=== PATIENT | male | born 2000 | race Caucasian/White ===

== ENCOUNTER 2024-11-20 21:25 | Emergency (ER) | payer BC ==
[2024-11-20 22:14] VITALS: RESP 18; TEMP 98.6
--- NOTE | 2024-11-20 22:32 | ED ---
General Adult HPI - General Chief complaint: Dizziness Stated complaint: Weakness Time Seen by Provider: 11/20/24 21:35 Source: patient, EMS, RN notes reviewed Mode of arrival: EMS Limitations: no limitations - History of Present Illness Initial comments: 23-year-old male presents to the emergency department for evaluation of lightheadedness and near syncope. Patient states that this evening just after eating lunch at work he started to feel lightheaded and had palpitations. He states that he felt that he was going to pass out. He got hot and clammy, nauseated prior to this. He does report having 1 episode of this prior about 2 days ago. He states that that was due to an injury though. He denies any recent illness. Denies any fever, chills. Denies chest pain, shortness of breath. Review of Systems ROS Statement: Those systems with pertinent positive or pertinent negative responses have been documented in the HPI. ROS Other: All systems not noted in ROS Statement are negative. Past Medical History Past Medical History: No Reported History History of Any Multi-Drug Resistant Organisms: None Reported Past Surgical History: No Surgical Hx Reported Past Psychological History: Unable to Obtain Smoking Status: Never smoker Past Alcohol Use History: None Reported Past Drug Use History: None Reported General Exam Limitations: no limitations General appearance: alert, in no apparent distress Head exam: Present: atraumatic, normocephalic, normal inspection Eye exam: Present: normal appearance, PERRL, EOMI. Absent: scleral icterus, conjunctival injection, periorbital swelling ENT exam: Present: normal exam, mucous membranes moist Neck exam: Present: normal inspection. Absent: tenderness, meningismus, lymph adenopathy Respiratory exam: Present: normal lung sounds bilaterally. Absent: respiratory distress, wheezes, rales, rhonchi, stridor Cardiovascular Exam: Present: regular rate, normal rhythm, normal heart sounds. Absent: systolic murmur, diastolic murmur, rubs, gallop, clicks Extremities exam: Present: normal inspection, full ROM, normal capillary refill. Absent: tenderness, pedal edema, joint swelling, calf tenderness Back exam: Present: normal inspection Neurological exam: Present: alert, oriented X3 Psychiatric exam: Present: normal affect, normal mood Skin exam: Present: warm, dry, intact, normal color. Absent: rash Course Vital Signs 11/20/24 11/20/24 11/21/24 21:55 23:15 00:10 Temperature 98.6 F Pulse Rate 110 H 103 H Pulse Rate [ 97 Insulation Foreman ] Respiratory 18 18 18 Rate Blood Pressure 144/68 140/70 Blood Pressure 113/64 [Right Arm] O2 Sat by Pulse 100 99 99 Oximetry 11/21/24 11/21/24 00:11 00:12 Temperature Pulse Rate Pulse Rate [ 100 100 Insulation Foreman ] Respiratory 18 18 Rate Blood Pressure Blood Pressure 135/77 144/62 [Right Arm] O2 Sat by Pulse 98 98 Oximetry Medical Decision Making - Medical Decision Making Was pt. sent in by a medical professional or institution (, PA, EDITORIAL WRITER, urgent care, hospital, or residential...) When possible be specific @ -No Did you speak to anyone other than the patient for history (EMS, parent, family, police, friend...)? What history was obtained from this source @ -No Did you review nursing and triage notes (agree or disagree)? Why? @ -I reviewed and agree with nursing and triage notes Were old charts reviewed (outside hosp., previous admission, EMS record, old EKG, old radiological studies, urgent care reports/EKG's, residential records)? Report findings @ -No old charts were reviewed Differential Diagnosis (chest pain, altered mental status, abdominal pain women, abdominal pain men, vaginal bleeding, weakness, fever, dyspnea, syncope, he adache, dizziness, GI bleed, back pain, seizure, CVA, palpatations, mental health, musculoskeletal)? @ -Differential Dizziness: Benign paroxysmal positional Vertigo, Meniere's disease, otitis media, acoustic neuroma, vertebrobasilar insufficiency, cerebellar stroke, encephalitis, hypovolemic, arrhythmia, coronary artery syndrome, anemia, this is not meant to be an all-inclusive list EKG interpreted by me (3pts min.). @ -EKG@2132 shows sinus rhythm rate 98, MI 147, QRS 105, QT/QTc [id number] X-rays interpreted by me (1pt min.). @ -None done CT interpreted by me (1pt min.). @ -None done U/S interpreted by me (1pt. min.). @ -None done What testing was considered but not performed or refused? (CT, X-rays, U/S, labs)? Why? @ -None What meds were considered but not given or refused? Why? @ -None Did you discuss the management of the patient with other professionals (jesse mercadofessionalnurys i.e. , PA, EDITORIAL WRITER, lab, RT, psych nurse, transition social worker, mortgage servicing specialist, teacher, biosecurity officer, counter caser)? Give summary @ -No Was smoking cessation discussed for >3mins.? @ -No Was critical care preformed (if so, how long)? @ -No Were there social determinants of health that impacted care today? How? (Homelessness, low income, unemployed, alcoholism, drug addiction, transportation, low edu. Level, literacy, decrease access to med. care, [facility], rehab)? @ -No Was there de-escalation of care discussed even if they declined (Discuss DNR or withdrawal of care, Hospice)? DNR status @ -No What co-morbidities impacted this encounter? (DM, HTN, Smoking, COPD, CAD, Cancer, CVA, ARF, Chemo, Hep., AIDS, mental health diagnosis, sleep apnea, morbid obesity)? @ -None Was patient admitted / discharged? Hospital course, mention meds given and route, prescriptions, significant lab abnormalities, going to OR and other pertinent info. @ -Discharge. Patient presented to the emergency department for evaluation of a presyncopal episode. Patient states that this occurred after eating dinner tonight. Laboratory studies were obtained revealing no significant leukocytosis, hemoglobin within normal limits. CMP is nonactionable. Patient was provided IV fluids in the emergency department. No significant changes in blood pressure or heart rate while monitoring orthostatic vital signs. He is feeling better. He will be discharged home. He is understanding agreeable plan. Patient stable at time of discharge. Case discussed with Dr. Johnson. Undiagnosed new problem with uncertain prognosis? @ -No Drug Therapy requiring intensive monitoring for toxicity (Heparin, Nitro, Insulin, Cardizem)? @ -No Were any procedures done? @ -No Diagnosis/symptom? @ -Presyncope Acute, or Chronic, or Acute on Chronic? @ -Acute Uncomplicated (without systemic symptoms) or Complicated (systemic symptoms)? @ -Uncomplicated Side effects of treatment? @ -No Exacerbation, Progression, or Severe Exacerbation? @ -No Poses a threat to life or bodily function? How? (Chest pain, [place], [place], pneumonia, PE, COPD, DKA, ARF, appy, cholecystitis, CVA, Diverticulitis, Homicidal, Suicidal, threat to staff... and all critical care pts) @ -No - Lab Data Result diagrams: 11/20/24 22:45 11/20/24 22:45 Lab Results 11/20/24 11/20/24 11/20/24 Range/Units 22:45 22:45 22:45 WBC 10.35 H (4.50-10.00) 10*3/uL RBC 4.48 (4.40-5.60) 10*6/uL Hgb 13.8 (13.0-17.0) g/dL Hct 39.0 L (39.6-50.0) % MCV 87.1 (80.0-97.0) fL MCH 30.8 (27.0-32.0) pg MCHC 35.4 (32.0-37.0) g/dL Plt Count 224 (140-440) 10*3/uL MPV 10.2 (9.5-12.2) fL Immature Gran % (Auto) 0.2 % Neutrophils % 78.8 % Lymphocytes % 11.9 % Monocytes % 8.5 % Eosinophils % 0.2 % Basophils % 0.4 % Immature Gran # 0.02 (0.00-0.04) 10*3/uL Neutrophils # 8.16 H (1.80-7.70) 10*3/uL Lymphocytes # 1.23 (0.90-5.00) 10*3/uL Monocytes # 0.88 (0.20-1.00) 10*3/uL Eosinophils # 0.02 L (0.04-0.35) 10*3/uL Basophils # 0.04 (0.00-0.10) 10*3/uL PT 11.0 (10.0-12.5) sec INR 1.0 (<1.2) APTT 24.1 (22.0-30.0) sec Sodium 137 (137-145) mmol/L Potassium 3.9 (3.5-5.1) mmol/L Chloride 105 (98-107) mmol/L Carbon Dioxide 25 (22-30) mmol/L Anion Gap 7 mmol/L BUN 17 (9-20) mg/dL Creatinine 1.01 (0.66-1.25) mg/dL Est GFR (CKD-EPI)AfAm >90 (>60 ml/min/1.73 sqM) Est GFR (CKD-EPI)NonAf >90 (>60 ml/min/1.73 sqM) Glucose 101 H (74-99) mg/dL Calcium 9.3 (8.4-10.2) mg/dL Total Bilirubin 0.8 (0.2-1.3) mg/dL AST 26 (17-59) U/L ALT 19 (4-49) U/L Alkaline Phosphatase 53 (38-126) U/L Total Protein 7.0 (6.3-8.2) g/dL Albumin 4.2 (3.5-5.0) g/dL Disposition Clinical Impression: Pre-syncope Disposition: HOME SELF-CARE Condition: Stable Instructions (If sedation given, give patient instructions): Dizziness (ED) Additional Instructions: Please follow up with your doctor. Return to the emergency department for new or worsening symptoms. Is patient prescribed a controlled substance at d/c from ED?: No Referrals: None,Stated [Primary Care Provider] - 1-2 days
[2024-11-20] MEDS: SODIUM CHLORIDE 0.9% 1,000 ML IV ONE (22:45)
[2024-11-20 22:55] LABS: Basophils # (A) 0.04 10*3/uL (0.00-0.10); Basophils % (A) 0.4 %; Eosinophils # (A) 0.02 10*3/uL (0.04-0.35); Eosinophils % (A) 0.2 %; HGB 13.8 g/dL (13.0-17.0); Lymphocytes # (A) 1.23 10*3/uL (0.90-5.00); Lymphocytes % (A) 11.9 %; MCH 30.8 pg (27.0-32.0); MCHC 35.4 g/dL (32.0-37.0); MCV 87.1 fL (80.0-97.0); Mean Platelet Volume 10.2 fL (9.5-12.2); Monocytes # (A) 0.88 10*3/uL (0.20-1.00); Monocytes % (A) 8.5 %; Neutrophils # (A) 8.16 10*3/uL (1.80-7.70); Neutrophils % (A) 78.8 %; Platelet Count 224 10*3/uL (140-440); RBC 4.48 10*6/uL (4.40-5.60); RDW 11.8 % (11.5-14.5); WBC 10.35 10*3/uL (4.50-10.00)
[2024-11-20 23:10] LABS: Partial Thromboplastin Time 24.1 sec (22.0-30.0)
[2024-11-20 23:25] LABS: ALT 19 U/L (4-49); African American GFR (CKD) >90 (>60 ml/min/1.73 sqM); Albumin 4.2 g/dL (3.5-5.0); Anion Gap 7 mmol/L; Blood Urea Nitrogen 17 mg/dL (9-20); Calcium 9.3 mg/dL (8.4-10.2); Carbon Dioxide 25 mmol/L (22-30); Chloride 105 mmol/L (98-107); Glucose 101 mg/dL (74-99); Non-African American GFR(CKD) >90 (>60 ml/min/1.73 sqM); Sodium 137 mmol/L (137-145); Total Bilirubin 0.8 mg/dL (0.2-1.3)
[2024-11-20 23:34] LABS: Potassium 3.9 mmol/L (3.5-5.1)
[2024-11-20 23:35] LABS: AST 26 U/L (17-59); Alkaline Phosphatase 53 U/L (38-126)
[2024-11-21 00:12] VITALS: BP 144/62; PULSE 100
== END 2024-11-21 00:24 | disposition home or self-care (01) ==
LOC: EC 21:25
DX: R55 Syncope and collapse (principal)
CPT/HCPCS: 36415; 80053; 85025; 85610; 85730; 93005; 96360; 96361; 99285

== ENCOUNTER → 2024-11-26 | Outpatient (CLI) | payer BC ==
--- NOTE | 2024-11-26 09:50 | CT ---
EXAMINATION TYPE: CT brain wo con DATE OF EXAM: 11/26/2024 9:02 AM COMPARISON: None. CLINICAL INDICATION: Male, 23 years old with history of R51.9 headache, HEADACHE TECHNIQUE: Brain: Axial CT images of the brain were obtained with coronal and sagittal reformats created and rev iewed. Contrast used: None. Oral contrast used: None. CT DLP: 1144 mGycm, Automated exposure control for dose reduction was used. FINDINGS: Brain: Extra-axial spaces: No abnormal extra-axial fluid collections. Ventricular system: Within normal limits Cerebral parenchyma: No acute intraparenchymal hemorrhage or mass effect. The silva-white junction is well differentiated. Cerebellum: Unremarkable. Mass effect: No evidence of midline shift. Intracranial vasculature: unremarkable Soft tissues: Normal. Calvarium/osseous structures: No depressed skull fracture. Paranasal sinuses and mastoid air cells: Mild scattered paranasal sinus disease. Visualized orbits: Orbital contents are intact. IMPRESSION: No acute intracranial process. [facility], , 11/26/2024 9:48 AM
[2024-11-26 15:09] LABS: Basophils # (A) 0.03 X 10*3/uL (0.00-0.10); Basophils % (A) 0.5 %; Eosinophils # (A) 0.12 X 10*3/uL (0.04-0.35); Eosinophils % (A) 1.9 %; HCT 44.3 % (39.6-50.0); Lymphocytes # (A) 1.65 X 10*3/uL (0.90-5.00); Lymphocytes % (A) 25.7 %; MCHC 33.9 g/dL (32.0-37.0); MCV 88.6 FL (80.0-97.0); Mean Platelet Volume 10.5 FL (9.5-12.2); Monocytes # (A) 0.92 X 10*3/uL (0.20-1.00); Monocytes % (A) 14.4 %; NRBC Per 100 WBC 0 X 10*3/uL (0.00-0.01); Neutrophils # (A) 3.68 X 10*3/uL (1.80-7.70); Neutrophils % (A) 57.3 %; Platelet Count 242 X 10*3/uL (140-440); RDW 12.2 % (11.5-14.5); WBC 6.41 X 10*3/uL (4.50-10.00)
[2024-11-26 16:44] LABS: ALT 20 U/L (10-49); AST 22 U/L (14-35); Albumin 4.7 g/dL (3.8-4.9); Albumin/Globulin Ratio 1.74 Ratio (1.60-3.17); Alkaline Phosphatase 71 U/L (41-126); Blood Urea Nitrogen 13.6 mg/dL (9.0-27.0); Calcium 9.4 mg/dL (8.7-10.3); Carbon Dioxide 25.1 mmol/L (21.6-31.8); Chloride 105 mmol/L (96-109); Chol/HDL Ratio 2.89 Ratio; Globulin 2.7 g/dL (1.6-3.3); Glucose 89 mg/dL (70-110); LDL Cholesterol,Calculated 66.1 mg/dL (0.0-131.0); Potassium 4.3 mmol/L (3.5-5.5); Sodium 141 mmol/L (135-145); Total Bilirubin 0.9 mg/dL (0.3-1.2); Total Protein 7.4 g/dL (6.2-8.2); VLDL Calculation 5.82 mg/dL (5.00-40.00)
--- NOTE | 2024-11-26 17:09 | XR ---
EXAMINATION TYPE: XR hand complete 3 views LT, XR finger (3 views third digit) LT DATE OF EXAM: 11/26/2024 8:52 AM COMPARISON: None CLINICAL INDICATION: Male, 23 years old with history of S61.239A puncture wound; PHH, pain, staple gu n to the middle finger FINDINGS: Hand: No acute fracture, subluxation, dislocation. Third digit: With particular attention to the third digit, no retained radiopaque foreign body is seen. No acute f racture, subluxation, or dislocation. IMPRESSION: Third digit and left hand without acute osseous abnormality seen. No retained radiopaque foreign body identified. [facility], Workstation: [facility] [place], 11/26/2024 5:07 PM
== END | disposition home or self-care (01) ==
LOC: RADCTMAIN 08:35
PROVIDERS: ATTEND Internal Medicine
DX: Z00.00 Encounter for general adult medical examination without abnormal findings (principal); S61.239A Puncture wound without foreign body of unspecified finger without damage to nail, initial encounter; R51.9 Headache, unspecified; X58.XXXA Exposure to other specified factors, initial encounter
CPT/HCPCS: 70450; 80053; 80061; 83735; 84443; 85025